=== PATIENT | female | born 1965 | race Caucasian/White ===

== ENCOUNTER 2020-06-04 16:51 | Emergency (ER) | payer MEDICARE, SELFPAY ==
--- NOTE | ~2020-06-04 | XR_ITS ---
EXAMINATION: XR ankle RT min 3V EXAM DATE: 06/04/2020 17:38 INDICATION: Fell Down Steps 06/04/20. Lat. Swelling Since. TECHNIQUE: Right ankle frontal, lateral and oblique projections obtained and reviewed. There is no p rior study for comparison. FINDINGS: The right ankle mortise appears intact. There is mild ankle primary osteoarthritis. There are no acute fractures or dislocations identified. There is no subcutaneous gas. The soft tissue i s unremarkable. There are no radiopaque foreign bodies. IMPRESSION: No acute osseous findings. Reviewed, dictated and finalized at location A. IMPRESSION: No acute osseous findings.
--- NOTE | ~2020-06-04 | XR_ITS ---
EXAMINATION: XR foot RT min 3V EXAM DATE: 06/04/2020 17:39 INDICATION: Initial encounter following injury, with pain of the right foot. TECHNIQUE: Right foot dorsoplantar, lateral and oblique projections obtained and reviewed. There is no prior study for comparison. FINDINGS: Right metatarsal bones unremarkable. There is mild 1st metatarsophalangeal joint primary o steoarthritis. There are no acute fractures or dislocations identified. There is no subcutaneous gas . The soft tissue is unremarkable. There are no radiopaque foreign bodies. IMPRESSION: No acute osseous findings. Reviewed, dictated and finalized at location A. IMPRESSION: No acute osseous findings.
[2020-06-04 17:03] VITALS: BP 128/70; PULSE 107; RESP 16; TEMP 36.9; O2SAT 98
[2020-06-04 17:17] VITALS: BP 128/70; PULSE 107; RESP 16; TEMP 36.9; O2SAT 98
--- NOTE | 2020-06-04 17:33 | ED.LOWEXIN ---
HPI - Extremity Injury (Lower) General Chief Complaint: Extremity Injury, Lower Stated Complaint: right foot injury Time Seen by Provider: 06/04/20 17:20 Source: patient and RN notes reviewed Mode of arrival: ambulatory Limitations: no limitations History of Present Illness HPI Narrative: 54 year old female who presents to express care with complaints of right lateral and medial ankle pain after falling down steps last night. Patient able to apply weight bearing to right foot with limping painful gait. Patient has mild amount of swelling noted to her lateral ankle with minimal bruising noted. Patient also voices some discomfort to her lateral dorsal right foot. Patient has strong pedal and posterior tibial pulses. She has been elevating her right foot, taking Ibuprofen, and icing her right lateral ankle. MD complaint: ankle injury and foot injury Onset (ago): day(s) (1) Injury: Right: ankle and foot Type of Injury: blunt and other (fall down steps) Place: home Severity: severe Severity scale (1-10): 9 Relieving factors: cold therapy and rest Exacerbating factors: weight bearing and movement Context: fall Associated symptoms: swelling and able to partially bear weight Other symptoms: none Treatments prior to arrival: cold therapy, NSAIDS and other (elevation) Related Data Home Medications Medication Instructions Recorded Confirmed atorvastatin 40 mg tablet 40 mg PO DAILY 05/02/20 06/04/20 conjugated estrogens 0.625 mg/gram 0.625 mg VAGINAL DAILY 05/02/20 06/04/20 vaginal cream diazepam 10 mg tablet 10 mg PO BID 05/02/20 06/04/20 duloxetine 60 mg capsule,delayed 60 mg PO DAILY 05/02/20 06/04/20 release escitalopram oxalate 20 mg tablet 20 mg PO DAILY 05/02/20 06/04/20 esomeprazole magnesium 40 mg 40 mg PO DAILY 05/02/20 06/04/20 capsule,delayed release estradiol 0.5 mg tablet 0.5 mg PO DAILY 05/02/20 06/04/20 hydrocodone 10 mg-acetaminophen 1 tablet PO Q6H 05/02/20 06/04/20 325 mg tablet lisinopril 10 mg tablet 10 mg PO DAILY 05/02/20 06/04/20 medroxyprogesterone 5 mg tablet 5 mg PO DAILY 05/02/20 06/04/20 orphenadrine citrate 100 mg 100 mg PO Q12H 05/02/20 06/04/20 tablet,extended release Allergies Allergy/AdvReac Type Severity Reaction Status Date / Time amoxicillin [From Augmentin] Allergy Unknown yeast Verified 06/04/20 17:16 infection clavulanic acid Allergy Unknown yeast Verified 06/04/20 17:16 [From Augmentin] infection Penicillins Allergy Hives Verified 06/04/20 17:16 erythromycin base AdvReac Other Verified 06/04/20 17:17 Review of Systems Review of Systems: Narrative: CONSTITUTIONAL: Denies fever, chills, or sweats. EYES: Denies visual changes, redness, or discharge. ENT: Denies rhinorrhea, congestion, sore throat, or otalgia. CARDIOVASCULAR: Denies chest pain, palpitations, or edema. RESPIRATORY: Denies cough or dyspnea. GASTROINTESTINAL: Denies abdominal pain, nausea, vomiting, or diarrhea. GENITOURINARY: Denies dysuria or hematuria. SKIN: Denies rash or itching. MUSCULOSKELETAL: Chronic back pain, right ankle lateral aspect and dorsal right foot pain, or myalgia. NEUROLOGIC: Denies headache, numbness, or weakness. PSYCHIATRIC: History of anxiety or depression. All systems reviewed & are unremarkable except as noted in HPI and below PMFSH Past Medical History Medical History (Updated 06/08/20 @ 09:54 by Iris Hamilton NP) Degenerative disc disease Herniated disc History of cardiac disorder Hypertension Osteoarthritis of both knees Spinal stenosis Surgical History Surgical History (Updated 06/08/20 @ 10:00 by Iris Hamilton NP) H/O LEEP History of x3 History of heart artery stent x5 Family History Family History (Updated 06/08/20 @ 10:00 by Iris Hamilton NP) Grandparent Pancreatic cancer Social History Social History (Updated 06/08/20 @ 09:59 by Iris Hamilton NP) Tobacco type: e-cigarettes/vaping Additional smoking assessment comme
== END 2020-06-04 18:01 | disposition home or self-care (01) ==
PROVIDERS: Emergency Provider Registered Nurse; PCP Family Medicine
DX: S93.401A Sprain of unspecified ligament of right ankle, initial encounter (principal); S96.911A Strain of unspecified muscle and tendon at ankle and foot level, right foot, initial encounter; W10.9XXA Fall (on) (from) unspecified stairs and steps, initial encounter; M79.671 Pain in right foot; I10 Essential (primary) hypertension; M17.0 Bilateral primary osteoarthritis of knee; M48.00 Spinal stenosis, site unspecified
CPT/HCPCS: 73610; 73630; 99213; G0463